=== PATIENT | female | born 1970 | race Caucasian/White ===

== ENCOUNTER → 2019-02-02 | Outpatient (CLI) | payer OTHER ==
--- NOTE | 2019-02-02 15:19 | XR ---
MR spine HISTORY: Low back pain, strain 3 views of the lumbar spine Lumbar vertebral bodies show preserved height, alignment, and bone mineralization. There is loss of d isc height L5-S1, multilevel spondylosis. Atherosclerotic vascular calcifications are noted incidenta lly. Sclerosis present in the posterior elements of the lower lumbar spine. IMPRESSION: Degenerative disc disease. Facet arthropathy.
== END | disposition home or self-care (01) ==
LOC: RADXRMAIN 14:49
PROVIDERS: ATTEND Emergency Medicine
DX: M51.36 Other intervertebral disc degeneration, lumbar region (principal); M46.96 Unspecified inflammatory spondylopathy, lumbar region
CPT/HCPCS: 72100